=== PATIENT | male | born 1945 | race Caucasian/White ===

== ENCOUNTER 2016-10-30 11:30 | Emergency (ER) | payer MEDICARE ==
[~2016-10-30] VITALS: Ht 175.3 cm; Wt 76.5 kg
[~2016-10-30 11:30] MED LIST: AMOX875T PO; CARB50TA3 PO; HYDR-3535 PO; MELO-1 PO; PROZ40CA PO; SIMV40TA PO; WELLTAB39 PO
[2016-10-30 11:32] VITALS: BP 123/72; PULSE 65; RESP 20; TEMP 97.5; O2SAT 97
[2016-10-30] MEDS ORDERED: CHOL50006 PO (12:07)
[2016-10-30] MEDS ORDERED: CO Q200C PO (12:07)
[2016-10-30] MEDS ORDERED: QUET1TAB7 PO (12:07)
[2016-10-30] MEDS ORDERED: CLON1TAB PO (12:07)
[2016-10-30] MEDS ORDERED: MIDO2.5T PO (12:07)
[2016-10-30] MEDS ORDERED: CARD120T4 PO (12:07)
[2016-10-30] MEDS ORDERED: MULTCAP14 (12:07)
--- NOTE | 2016-10-30 12:28 | RADRPT ---
EXAM DATE/TIME: 10/30/2016 12:10 [facility] COMPARISON: No previous studies available for comparison. INDICATIONS : Right wrist pain after fall yesterday. MEDICAL HISTORY : None. SURGICAL HISTORY : None. ENCOUNTER: Initial ACUITY: 2 days PAIN SCORE: 5/10 LOCATION: Right wrist. FINDINGS: Three view examination of the right wrist demonstrates no soft tissue swelling, dislocation, or fract ure. The carpal bones are in normal alignment. The joint spaces are maintained. Bony mineralizatio n is normal. CONCLUSION: Unremarkable examination of the right wrist. Cassie Kauffman MD on October 30, 2016 at 12:26 Board Certified Radiologist. This report was verified electronically.
--- NOTE | 2016-10-30 12:28 | RADRPT ---
EXAM DATE/TIME: 10/30/2016 12:06 [facility] COMPARISON: CT ABDOMEN & PELVIS W CONTRAST, August 11, 2015, 11:16. INDICATIONS : Lower back pain after fall yesterday. MEDICAL HISTORY : Prior L1 fracture. Degenerative disk disease. SURGICAL HISTORY : None. ENCOUNTER: Not available ACUITY: None available PAIN SCORE: Not available LOCATION: Not available FINDINGS: Two view examination was performed. There are five non-rib bearing vertebral bodies. There is diffus e osteopenia. Stable appearance of the insufficiency fracture involving the L1 vertebral body with lo ss of approximately 50% mid vertebral body height. The remainder of the vertebral bodies appear intac t. There is stable degenerative change seen at the level of L4/L5 and L5/S1. CONCLUSION: Stable osteopenia and insufficiency fracture of the L1 vertebral body. No new additional fractures ar e seen. Cassie Kauffman MD on October 30, 2016 at 12:24 Board Certified Radiologist. This report was verified electronically.
--- NOTE | 2016-10-30 12:29 | PD ---
HPI Chief Complaint: Fall Time Seen by Provider: 12:25 Travel History International Travel<30 days: No Contact w/Intl Traveler<30days: No Traveled to known affect area: No History of Present Illness HPI 70-year-old white male presents to the department for evaluation of fall which occurred yesterday. He had slipped on the wet floor falling back onto his buttocks then back onto his head. He denies syncope. He states that he has had persistent headache some nausea but no vomiting. He also complains of pain in his right wrist and lower back. The patient has a history of Parkinson's. He does admit to tenderness in the back of the head as well as the base of his skull. He denies any focal numbness or tingling. No focal weakness. He denies any chest pain or shortness of breath. No syncope. He states that this was a mechanical slip and fall. PFSH Past Medical History Hx Anticoagulant Therapy: No Blood Disorders: No Anxiety: Yes Depression: Yes Cancer: Yes (PROSTATE ) Cardiovascular Problems: No High Cholesterol: Yes Chemotherapy: Yes (1999) Cerebrovascular Accident: No Coronary Artery Disease: Yes Diminished Hearing: No Endocrine: No Gastrointestinal Disorders: Yes (CHRONIC CONSTIPATION) Genitourinary: No Hypertension: Yes Immune Disorder: No Musculoskeletal: Yes (CHRONIC BACK PAIN ) Neurologic: No Parkinson's Disease: Yes (PRE-PARKINSONS) Psychiatric: Yes Reproductive: No Respiratory: No Immunizations Current: No Radiation Therapy: Yes Tetanus Vaccination: > 5 Years Influenza Vaccination: Yes ?: Unknown Past Surgical History Abdominal Surgery: Yes (HERNIA ) Appendectomy: Yes Genitourinary Surgery: Yes (PENILE IMPLANT, PROSTATE REMOVED ) Other Surgery: Yes Social History Alcohol Use: No Tobacco Use: No Substance Use: No Allergies-Medications (Allergen,Severity, Reaction): Coded Allergies: No Known Allergies (Unverified , 10/30/16) Reported Meds & Prescriptions Reported Meds & Active Scripts Active Reported Multi For Him (Multiple Vitamins W/ Minerals) 1 Cap Cap Quetiapine (Quetiapine Fumarate) 25 Mg Tab 25 Mg PO HS Clonazepam 1 Mg Tab 1 Mg PO HS Midodrine 2.5 Mg Tab 2.5 Mg PO BID Vitamin D (Cholecalciferol) 5,000 Unit Tab 5,000 PO DAILY Co Q-10 (Coenzyme Q10 (Ubidecarenone)) 200 Mg Cap 200 Mg PO DAILY Cardizem (Diltiazem HCl) 120 Mg Tab 120 Mg PO DAILY Wellbutrin Xl 24 HR (Bupropion HCl) 300 Mg Tab 300 Mg PO DAILY Prozac (Fluoxetine HCl) 40 Mg Cap 70 Cap PO DAILY Lortab (Hydrocodone-Acetaminophen) 10-325 Mg Tab 1 Tab PO Q6H PRN Review of Systems Except as stated in HPI: all other systems reviewed are Neg General / Constitutional: No: Fever, Chills Eyes: No: Diploplia, Blurred Vision, Pain, Visual changes HENT: Positive: Neck Pain, No: Headaches, Neck Stiffness Cardiovascular: No: Chest Pain or Discomfort, Palpitations Respiratory: No: Cough, Shortness of Breath Gastrointestinal: Positive: Nausea, No: Vomiting, Abdominal Pain Genitourinary: No: Frequency, Dysuria Musculoskeletal: Positive: Myalgias, Pain, No: Arthralgias, Limited ROM, Weakness Skin: No Rash, No Itching Neurologic: Positive: Headache, No: Weakness, Paresthesia Physical Exam Narrative GENERAL: Well-developed, well-nourished in no apparent distress. Nontoxic appearing. HEAD: Normocephalic, patient has a soft tissue hematoma to the right posterior occiput. This measures approximately 3 x 3 cm. EYES: Pupils equal round and reactive. Extraocular motions intact. No scleral icterus. No injection or drainage. ENT: Nose clear. Throat without erythema, tonsillar hypertrophy or exudate. Uvula midline. Airway patent. NECK: Trachea midline. Supple, mild tenderness at the base of the skull at the mastoid insertions., moves head freely. No central bony tenderness or spasm. CARDIOVASCULAR: Regular rate and rhythm without murmurs, gallops, or rubs. RESPIRATORY: Clear to auscultation. Breath sounds equal bilaterally. No wheezes , rales, or rhonchi. GASTROINTESTINAL: Abdomen soft, non-tender, nondistended. No hepato-splenomegaly , or palpable masses. No guarding. EXTREMITIES: No clubbing, cyanosis, or edema. Examination of the right upper extremity reveals pain over the distal radius with minimal swelling. No snuffbox tenderness. There is some tenderness up into the first metacarpal. Patient has full range of motion. He is intact in median/ulnar/renal nerves. He has good pulses. No pain in the fingers, elbow, shoulder. The left upper extremity as well as lower extremities are without localizing bony tenderness or deformity. BACK: Mild tenderness in the lower sacral region as well as the paralumbar musculature. No central bony tenderness. No dorsal spine tenderness. Without deformity. No flank tenderness. NEUROLOGICAL: Awake, alert and oriented x 3 .Cranial nerves grossly intact. Motor and sensory grossly within normal limits. Normal speech. Patient moves all of his extremities and coordinated fashion. Data Data Last Documented VS Vital Signs Date Time Temp Pulse Resp B/P Pulse Ox O2 Delivery O2 Flow Rate FiO2 10/30/16 11:56 62 18 98 Room Air 10/30/16 11:32 97.5 123/72 Orders Wrist, Complete (Gbs8cmv) (10/30/16 11:54) Spine, Lumbar - Ltd (Ap & Lat) (10/30/16 11:54) Ct Brain W/O Iv Contrast(Rout) (10/30/16 11:54) Ct Cerv Spine W/O Contrast (10/30/16 11:54) Tetanus/Diphtheria Tox Adult (Tetanus/Di (10/30/16 12:45) MDM Medical Decision Making Medical Screen Exam Complete: Yes Emergency Medical Condition: Yes Medical Record Reviewed: Yes Interpretation(s) Last 24 hours Impressions Wrist X-Ray 10/30/16 1150 Signed Impressions: Service Date/Time: Sunday, October 30, 2016 12:10 - CONCLUSION: Unremarkable examination of the right wrist. Cassie Kauffman MD Lumbar Spine X-Ray 10/30/16 6831 Signed Impressions: Service Date/Time: Sunday, October 30, 2016 12:06 - CONCLUSION: Stable osteopenia and insufficiency fracture of the L1 vertebral body. No new additional fractures are seen. Cassie Kauffman MD Head CT 10/30/16 [id number] Signed Impressions: Service Date/Time: Sunday, October 30, 2016 12:51 - CONCLUSION: No acute disease. Cassie Kauffman MD Cervical Spine CT 10/30/16 115 Signed Impressions: Service Date/Time: Sunday, October 30, 2016 12:51 - CONCLUSION: No evidence of fracture or dislocation. Degenerative changes as noted above.. Cassie Kauffman MD Differential Diagnosis MDM: High Differential diagnoses: Fracture, sprain, strain, dislocation, contusion, neurovascular injury Narrative Course X-rays of the right wrist, lumbar spine, so CT of the cervical spine and brain a been ordered. Patient has taken Lortab prior to coming in for his chronic pain. CAT scan of the brain and neck are negative for acute trauma. X-rays of the lumbar spine and wrist are also negative for acute trauma. He has an old L1 fracture. This is head contusion, back contusion, right wrist sprain Diagnosis Primary Impression: Head contusion Qualified Code: S00.03XA - Contusion of scalp, initial encounter Additional Impressions: Back contusion Qualified Code: S20.229A - Back contusion, unspecified laterality, initial encounter Right wrist sprain Qualified Code: S63.501A - Right wrist sprain, initial encounter Patient Instructions: General Instructions Additional Instructions: Rest. Ice for the next 3 days followed by heat . Head precautions. Continue home medications. Follow-up with a primary care doctor in one week. Return to the ER for emergencies. Med/Other Pt SpecificInfo: No Change to Meds Disposition: 01 DISCHARGE HOME Condition: Stable Tremaine Travis Oct 30, 2016 12:29
[2016-10-30] MEDS ORDERED: TETANUS/DIPHTHERIA TOXOID ADULT 0.5 ML VIAL IM ONE (12:45)
--- NOTE | 2016-10-30 13:17 | RADRPT ---
EXAM DATE/TIME: 10/30/2016 12:51 [facility] COMPARISON: No previous studies available for comparison. INDICATIONS : Fall backwards yesterday onto posterior head, cephalgia. RADIATION DOSE: 33.68 CTDIvol (mGy) MEDICAL HISTORY : Hypertension. Carcinoma, prostate. SURGICAL HISTORY : Prostatectomy. ENCOUNTER: Initial ACUITY: 2 days PAIN SCALE: 5/10 LOCATION: Bilateral occipital head TECHNIQUE: Multiple contiguous axial images were obtained of the head. Using automated exposure control and adj ustment of the mA and/or kV according to patient size, radiation dose was kept as low as reasonably a chievable to obtain optimal diagnostic quality images. FINDINGS: CEREBRUM: The ventricles are normal for age. No evidence of midline shift, mass lesion, hemorrhage or acute in farction. No extra-axial fluid collections are seen. POSTERIOR FOSSA: The cerebellum and brainstem are intact. The 4th ventricle is midline. The cerebellopontine angle i s unremarkable. EXTRACRANIAL: The visualized portion of the orbits is intact. SKULL: The calvaria is intact. No evidence of skull fracture. CONCLUSION: No acute disease. Cassie Kauffman MD on October 30, 2016 at 13:14 Board Certified Radiologist. This report was verified electronically.
--- NOTE | 2016-10-30 13:21 | RADRPT ---
EXAM DATE/TIME: 10/30/2016 12:51 [facility] COMPARISON: No previous studies available for comparison. INDICATIONS : Fall backwards yesterday onto posterior head. RADIATION DOSE: 21.31 CTDIvol (mGy) MEDICAL HISTORY : Hypertension. Carcinoma, prostate. SURGICAL HISTORY : Prostatectomy. ENCOUNTER: Initial ACUITY: 1 day PAIN SCALE: 3/10 LOCATION: Bilateral neck TECHNIQUE: Volumetric scanning of the cervical spine was performed. Multiplanar reconstructions in the sagittal, coronal and oblique axial planes were performed. Using automated exposure control and adjustment o f the mA and/or kV according to patient size, radiation dose was kept as low as reasonably achievable to obtain optimal diagnostic quality images. FINDINGS: VERTEBRAE: Normal vertebral body height. No evidence of fracture. ALIGNMENT: No evidence of subluxation. C2-C3: The bony spinal canal is normal in size. No evidence of disc bulge or herniation. The neural forami na are bilaterally patent. C3-C4: The bony spinal canal is normal in size small posterior disc osteophyte complex and right facet arthr opathy. No significant spinal canal or neuroforaminal narrowing. C4-C5: Bilateral facet arthropathy, left greater than right. This contributes to moderate left-sided neural foraminal narrowing. No significant spinal canal narrowing. C5-C6: Small posterior disc osteophyte complex which mildly narrows the spinal canal in AP dimension. Bilate ral facet degenerative changes combine to contribute to bilateral moderate neural foraminal narrowing , left greater than right.. C6-C7: Disc desiccation and disc space narrowing with a posterior disc osteophyte complex contributes to mil d narrowing of the spinal canal and mild bilateral neural foraminal narrowing.. C7-T1: The bony spinal canal is normal in size. No evidence of disc bulge or herniation. The neural forami na are bilaterally patent. CONCLUSION: No evidence of fracture or dislocation. Degenerative changes as noted above.. Cassie Kauffman MD on October 30, 2016 at 13:16 Board Certified Radiologist. This report was verified electronically.
[2016-10-30 14:03] VITALS: BP 132/67; PULSE 58; RESP 18; O2SAT 98
== END 2016-10-30 14:07 | disposition home or self-care (01) ==
LOC: NEPD 11:30
DX: S00.03XA Contusion of scalp, initial encounter (principal); S20.229A Contusion of unspecified back wall of thorax, initial encounter; S63.501A Unspecified sprain of right wrist, initial encounter; F41.8 Other specified anxiety disorders; E78.00 Pure hypercholesterolemia, unspecified; I25.10 Atherosclerotic heart disease of native coronary artery without angina pectoris; G20 Parkinson's disease; K59.09 Other constipation; M85.80 Other specified disorders of bone density and structure, unspecified site; Z23 Encounter for immunization; W01.0XXA Fall on same level from slipping, tripping and stumbling without subsequent striking against object, initial encounter; Y93.9 Activity, unspecified; Y99.9 Unspecified external cause status
CPT/HCPCS: 70450; 72100; 72125; 73110; 90471; 90714